=== PATIENT | male | born 1995 | race Caucasian/White ===

== ENCOUNTER 2024-05-19 06:06 | Day surgery (SDC) | payer OTHER ==
[~2024-05-19] VITALS: Ht 177.8 cm; Wt 113.6 kg
[~2024-05-19 06:06] MED LIST: ACET500 PO; IBUP600 PO; Lactated Ringer's 1,000 ML IV ONE; OMEP20ER PO; Roxicodone5 MG PO
[2024-05-19] MEDS ORDERED: Lactated Ringer's 1,000 ML IV ONE (06:31)
[2024-05-19] MEDS ORDERED: Midazolam HCl 1MG / ML 2ML Vial ONE (07:06)
[2024-05-19] MEDS ORDERED: FentaNYL Citrate 50 MCG/ML 2 ML Injection ONE ×4 (07:06→09:49)
[2024-05-19] MEDS ORDERED: NS 50 ML IV ONE (07:10)
[2024-05-19] MEDS ORDERED: Bupivacaine 0.5% HCl 5 MG/ML 30MLVIAL ONE (07:10)
[2024-05-19] MEDS ORDERED: CeFAZolin Sodium 2,000 MG VIAL ONE (07:10)
[2024-05-19] MEDS ORDERED: Ropivacaine 0.5% HCL/PF 5 MG/ML 30ML Vial ONE (07:15)
[2024-05-19] MEDS ORDERED: propofoL 20 ML IV ONE ×2 (07:19→07:31)
--- NOTE | 2024-05-19 07:32 | NUR ---
05/19/24 0732 MANUEL ERVIN TIMBER ESTIMATOR IN TO PERFORM ADDUCTOR BLOCK TO LEFT LEG. PT PROVIDED WITH SEDATION PRIOR BY MO. PULSE OX TO PT FINGER. BLOCK PERFORMED WITHOUT INCIDENT.
[2024-05-19] MEDS ORDERED: HYDROmorphone HCl/Pf 1MG SYR ONE ×2 (07:41→10:50)
[2024-05-19] MEDS ORDERED: Dexamethasone Sod Phos 10 MG/ML 1ML VIAL ONE (07:44)
[2024-05-19] MEDS ORDERED: Ondansetron HCl 2 MG / ML 2ML Vial ONE (07:44)
[2024-05-19] MEDS ORDERED: Ketorolac Tromethamine 30mg Vial ONE (07:58)
--- NOTE | 2024-05-19 08:11 | NUR ---
05/19/24 0810 Margaret Stephenson 1 MG EPI ADDED TO THE FIRST BAG OF LR FOR IRRIGATION AT [facility].
[2024-05-19] MEDS ORDERED: Labetalol HCL 5 MG/ML 4ML Injection (Single Dose) ONE (09:56)
[2024-05-19] MEDS ORDERED: OxyCODONE HCL 5 MG TAB ONE (11:08)
--- NOTE | 2024-05-19 16:01 | NUR ---
05/19/24 1601 Nik Rubalcava PT INSTRUCTED TO MONITOR B/P AT HOME, AND FOLLOW UP WITH PCP IF NEEDED. PT INITIALLY MAINTAIN O2 92-96% IN SDU WITH BREIF DROPS LOW 87%. PT WAS ABLE TO RAISE O2 QUICKLY TO >92% WITH DEEP BREATHS. HE DENIED SOB, CP, AND DIZZINESS. PT TRANSFERED TO [facility] AT 1050 . HE WAS GIVEN INCENTIVE SPIROMETER AND INSTRUCTED IN ITS USE AT THAT TIME. FOLLOWING TRANSFER, PT MAINTAINED O2 >92%, WHILE AWAKE, THROUGHOUT STAY IN SDU. PT LATER BEGAN TO DOZE OFF PERIODICALLY. O2 MAINTAINED 94-100% WHILE SLEEPING WITH BREIF DROPS LOW 91%. DURING THIS TIME, PT WAS ABLE TO QUICKLY, SPONTANEOUSLY RETURN O2 TO >94%. LILIAN MATOS WAS CONSULTED REGARDING VITALS AND APPROVED D/C. ILLIAN MATOS VISITED PT AND INSTRUCTED HIM TO ONLY USE PERCRIPTION PAIN MEDICATION WHEN REALLY NEEDED AND FULLY AWAKE. PT REPORTED TOLERABLE 4.5/10 PAIN UPON D/C. HE APPEARED CALM, ALERT, RELAXED, AND TALKATIVE. PT WAS ABLE TO VOID WITHOUT DIFFICULTY PRIOR TO D/C. FOLLOWING D/C, DR. DYER WAS CONSULTED REGARDING COMPRESSION SOCKS AND USE OF CRUTCHES WITH PT'S INJURED SHOULDER. PT WAS CALLED AND INSTRUCTED NOT TO USE CRUTCHES WITH INJURED SHOULDER AND TO WEAR COMPRESSION SOCKS FOR TWO WEEKS, PER DR. DYER ORDERS. REGARDING USE OF
== END 2024-05-19 12:35 | disposition home or self-care (01) ==
LOC: ORSCSDS 06:06
PROVIDERS: Orthopaedic Surgery
PROC: 0QSH04Z Reposition Left Tibia with Internal Fixation Device, Open Approach (ICD-10-PCS; principal; 2024-05-19 07:30)
DX: S82.132A Displaced fracture of medial condyle of left tibia, initial encounter for closed fracture (principal)
CPT/HCPCS: A9270; C1713; J0690; J1100; J1170; J1885; J2250; J2405; J2704; J2795; J3010; J7120